=== PATIENT | male | born 1970 | race Caucasian/White ===

== ENCOUNTER 2021-11-02 14:57 | Inpatient (IN) | payer OTHER ==
[~2021-11-02] VITALS: Ht 182.9 cm; Wt 171.1 kg
--- NOTE | 2021-11-02 15:20 | NUR ---
SOB & DIARRHEA X 2 DAYS. COVID VACCINE UTD. PT AAOX4, VSS. PLACED ON REGRINDER, SR. ON O2 2L, SAT 96%. AWAITING EVAL BY ERMD/MESS COOK. WILL CONT TO MONITOR.
--- NOTE | 2021-11-02 15:35 | NUR ---
TECH CALLED MIDLINE RN PER ERMD ORDER.
[2021-11-02] MEDS ORDERED: LEVO112T2 PO (15:46)
[2021-11-02] MEDS ORDERED: ALLO100T PO (15:46)
[2021-11-02] MEDS ORDERED: LISI10TA29 PO (15:46)
[2021-11-02] MEDS ORDERED: APIX2.5T PO (15:46)
[2021-11-02] MEDS ORDERED: ATOR10TA PO (15:46)
[2021-11-02] MEDS ORDERED: CHOL500062 PO (15:46)
--- NOTE | 2021-11-02 16:45 | NUR ---
COVID TEST COLLECTED AND SENT
[2021-11-02 16:59] LABS: BASOPHILS # (AUTO) 0.1 K/uL (0.0-0.2); BASOPHILS % (AUTO) 1.2 % (0.0-2.0); EOSINOPHILS % (AUTO) 2.5 % (0.0-6.0); HEMATOCRIT 34 % (39-51); LYMPHOCYTES # (AUTO) 1.8 K/uL (0.8-4.8); LYMPHOCYTES % (AUTO) 19.9 % (20.0-44.0); MEAN CORPUSCULAR HGB CONC 32 g/dl (31.0-36.0); MEAN CORPUSCULAR VOLUME 93 fL (80-96); MONOCYTES # (AUTO) 0.9 K/uL (0.1-1.30); MONOCYTES % (AUTO) 10.1 % (2.0-12.0); NEUTROPHILS # (AUTO) 5.9 K/uL (1.8-8.9); NEUTROPHILS % (AUTO) 66.3 % (43.0-81.0); PLATELET COUNT (AUTO) 340 K/uL (150-450); WHITE BLOOD COUNT (AUTO) 8.9 K/uL (4.3-11.0)
[2021-11-02 17:49] LABS: CREATININE 0.9 mg/dL (0.6-1.3); POTASSIUM 3.9 mmol/L (3.5-5.1)
[2021-11-02] MEDS ORDERED: FUROSEMIDE 40 MG/4 ML VIAL IV ONE (18:00)
[2021-11-02 18:01] LABS: BILIRUBIN,DIRECT 0.1 mg/dL (0.0-0.2); BILIRUBIN,TOTAL 0.4 mg/dL (0.2-1.0); TOTAL PROTEIN, SERUM 7.5 g/dL (6.4-8.2)
[2021-11-02] MEDS ORDERED: FUROSEMIDE 40 MG/4 ML VIAL ONE (18:40)
--- NOTE | 2021-11-02 18:40 | NUR ---
dr garber from anesthesia at bedside with dr pozo for rsi, patient refused.
[2021-11-02] MEDS ORDERED: MORPHINE SULFATE INJ 2 MG/ML DISP.SYRIN IV PRN (19:30)
[2021-11-02] MEDS ORDERED: LABETALOL 20 MG/4 ML VIAL IV PRN (19:30)
[2021-11-02] MEDS ORDERED: ONDANSETRON HCL/PF 4 MG/2 ML VIAL IVP PRN (19:30)
[2021-11-02] MEDS ORDERED: MAGNESIUM HYDROXIDE 30 ML UDC PO PRN (19:30)
[2021-11-02] MEDS ORDERED: ACETAMINOPHEN 325 MG TABLET PO PRN (19:30)
[2021-11-02] MEDS ORDERED: MAG HYDROX/AL HYDROX/SIMETH 30 ML UDC PO PRN (19:30)
[2021-11-02] MEDS ORDERED: DEXAMETHASONE SOD PHOSPHATE 10 MG/ML VIAL IV ONE (19:30)
[2021-11-02] MEDS ORDERED: DEXAMETHASONE SOD PHOSPHATE 10 MG/ML VIAL ONE (19:33)
[2021-11-02] MEDS ORDERED: PIPERACILLIN /TAZOBACTAM 3.375 G VIAL IV ONE (19:35)
[2021-11-02] MEDS ORDERED: PIPERACILLIN /TAZOBACTAM 3.375 G in IV D5W 50 ML IV ONE (20:00)
[2021-11-02] MEDS ORDERED: VANCOMYCIN 1.5 GM in IV D5W 250 ML IV ONE (20:00)
[2021-11-02] MEDS ORDERED: VANCOMYCIN 1.5 GM in IV D5W 500 ML IV ONE (20:00)
[2021-11-02] MEDS ORDERED: VANCOMYCIN 1 GM in IV D5W 250 ML IV ONE (20:00)
--- NOTE | 2021-11-02 21:13 | NUR ---
[facility] SWAB COLLECTED AND SENT TO LAB. PATIENT'S BELONGINGS LIST DONE.
--- NOTE | 2021-11-02 21:23 | NUR ---
TRANSFERRE TO ICU UNDER ACLS
--- NOTE | 2021-11-02 21:27 | NUR ---
RECEIVED PT FROM ER VIA GURNEY ACCOMPANIED BY RN AND EMT, PT ON NRM 15L NO SIGN OF RESPIRATORY DISTRESS, HOOKED TO MONITOR WITH SPO2 96-97% PT IS LETHARGIC BUT EASY TO AWAKE HE IS ABLE TO ANSWER QUESTIONS HE EVEN HELP US IN TRANSFERRING TO BED DUE TO HIS HEAVY WEIGHT, HOOKED TO MONITOR WITH READING SINUS RHYTHM INVERTED TWAVE HR 60-70, HEAD TO TOE ASSESMENT DONE PT HAVE BIG AND DISTENDED ABDOMEN BUT SOFT TO TOUCH , BILATERAL LOWER EXTREMITIES REDNESS NOTED DOCUMENTATION DONE, INITILA ASSESSMENT DONE, PT HAVE GRAJEDA CATHETER DRAINING CLEAR YELLOW URINE, BED ON LOWEST POSITION AND LOCKED SIDERAIL UP X2 WILL CONT TO MONITOR
[2021-11-02 22:00] VITALS: BP 138/55
--- NOTE | 2021-11-02 22:00 | NUR ---
SEEN BY DR SYLVIA HERNANDEZ PT IS ABLE TO ANSWER DR QUESTION BUT STILL VERY SLEEPY,
[2021-11-02] MEDS: ATORVASTATIN 40 MG TABLET PO SCH (22:19)
[2021-11-02] MEDS: APIXABAN 5 MG TABLET PO SCH (22:19)
[2021-11-02 22:30] VITALS: BP 127/68
[2021-11-02 22:44] LABS: THYROID STIMULATING HORMONE 8.534 uIU/mL (0.358-3.74)
[2021-11-02] MEDS: FUROSEMIDE 40 MG/4 ML VIAL IV SCH (22:48)
[2021-11-02 23:00] VITALS: BP 130/77
[2021-11-02 23:30] VITALS: BP 109/60
[2021-11-03] VITALS (27 sets, daily range): BP systolic 84–147; BP diastolic 31–102
--- NOTE | 2021-11-03 00:37 | NUR ---
RELAYED TO DR MARIE ABOUT THE LATEST ABG RESULT THAT WE ORDER DUE TO PT IS STILL VERY LETHARGIC WITH ORDER CONTINUE BIPAP WITH CURRENT SETTING UNTIL MORNING NOTED AND CARRIED OUT
[2021-11-03 00:40] LABS: ABG BASE EXCESS 1.7 mmol/L; ABG PCO2 75.4 mmHg (35.0-45.0); ABG PO2 66.8 mmHg (75.0-100.0); COHb 0.3 % (0.5-1.5); MetHb 0.3 % (0.0-1.5); O2Hb 88.3 % (94.0-97.0); SITE, ABG Right Radial; VENT MODE, BG 3L NC
[2021-11-03 00:40] LABS: ABG BASE EXCESS 4.2 mmol/L; ABG PCO2 49.2 mmHg (35.0-45.0); ABG PH 7.399 (7.350-7.450); ABG PO2 88.8 mmHg (75.0-100.0); COHb 0.3 % (0.5-1.5); MetHb 0.3 % (0.0-1.5); O2Hb 95.6 % (94.0-97.0); PEEP,BG 5 cm H2O; SITE, ABG Right Radial; VENT MODE, BG ST 20/5 18 40%
[2021-11-03 00:40] LABS: ABG BASE EXCESS 2.9 mmol/L; ABG OXYGEN SATURATION 94.9 % (92.0-98.5); ABG PCO2 54.6 mmHg (35.0-45.0); ABG PO2 83.2 mmHg (75.0-100.0); AaDO2 139.2 mmHg; COHb 0.1 % (0.5-1.5); MetHb 0.2 % (0.0-1.5); O2Hb 94.6 % (94.0-97.0); SITE, ABG Right Radial
[2021-11-03] MEDS ORDERED: CLINDAMYCIN 900 MG/6 ML VIAL ONE (02:53)
[2021-11-03] MEDS ORDERED: IV NS 0.9% 250 ML IV PRN (03:00)
[2021-11-03] MEDS: CLINDAMYCIN 900 MG in IV D5W 50 ML IV SCH ×3 (04:51→20:41)
[2021-11-03 04:56] LABS: BASOPHILS % (AUTO) 0.4 % (0.0-2.0); HEMATOCRIT 31 % (39-51); HEMOGLOBIN 10.1 g/dL (13.5-17.5); LYMPHOCYTES # (AUTO) 0.6 K/uL (0.8-4.8); LYMPHOCYTES % (AUTO) 10.5 % (20.0-44.0); MEAN CORPUSCULAR HGB CONC 33 g/dl (31.0-36.0); MEAN CORPUSCULAR VOLUME 92 fL (80-96); MONOCYTES # (AUTO) 0.3 K/uL (0.1-1.30); NEUTROPHILS # (AUTO) 4.9 K/uL (1.8-8.9); NEUTROPHILS % (AUTO) 84.1 % (43.0-81.0); PLATELET COUNT (AUTO) 315 K/uL (150-450); RED BLOOD CELL COUNT(AUTO) 3.37 MIL/uL (4.5-6.0); WHITE BLOOD COUNT (AUTO) 5.8 K/uL (4.3-11.0)
[2021-11-03 05:21] LABS: ALBUMIN 2.4 g/dL (3.4-5.0); BILIRUBIN,TOTAL 0.4 mg/dL (0.2-1.0); CALCIUM, SERUM 9.3 mg/dL (8.5-10.1); CREATININE 0.8 mg/dL (0.6-1.3); MAGNESIUM 1.9 mg/dL (1.8-2.4); PHOSPHORUS 4.1 mg/dL (2.5-4.9); POTASSIUM 4.5 mmol/L (3.5-5.1); TOTAL PROTEIN, SERUM 6.5 g/dL (6.4-8.2)
--- NOTE | 2021-11-03 06:41 | NUR ---
PT ON BED STILL ON BIPAP SETTING ORDERED PT STILL LETHARGIC BUT MORE AROUSABLE THAN LAST NIGHT, NO SIGN OF DISTRESS SPO2 96-97% SINUS RHYTHM/ SINUS [place] ON MONITOR 50-70'S , ALL NEEDS ATTENDED, BED ON LOWEST POSITION AND LOCKED SIDE RAILS UP X2 CALL LIGHT WITHIN REACH WILL CONT TO MONITOR
[2021-11-03] MEDS: LEVOTHYROXINE SODIUM 112 MCG TABLET PO SCH (07:30)
[2021-11-03] MEDS: APIXABAN 5 MG TABLET PO SCH ×3 (08:01→16:19)
[2021-11-03] MEDS: ALLOPURINOL 100 MG TABLET PO SCH ×3 (08:02→16:19)
[2021-11-03] MEDS: LISINOPRIL (10MG) 10 MG TABLET PO SCH ×2 (08:02→09:28)
[2021-11-03] MEDS: FUROSEMIDE 40 MG/4 ML VIAL IV SCH ×3 (08:22→16:19)
--- NOTE | 2021-11-03 10:00 | NUR ---
PATIENT REMOVED FROM BIPAP AND PLACED ON 3L NC Addendum: 11/03/21 at 1202 by MARCIAL VARGHESE RT Amended: Links added.
--- NOTE | 2021-11-03 18:28 | NUR ---
RN CLOSING NOTE PT A/OX4 ON 4L NC O2 SAT >94%. PT ON LASIX GRAJEDA OUTPUT 6.8L. RU MIDLINE AND RAC INTACT AND FLUSHING.
[2021-11-03] MEDS: ATORVASTATIN 40 MG TABLET PO SCH (21:07)
--- NOTE | 2021-11-03 21:30 | NUR ---
REPORTED TO HOSPITALIST SOFTWARE DEVELOPER MANAGER DR MARIE THAT PT IS COMPLAINING OF LOWER BACK PAIN AND ASKING FOR PAIN MEDICATION WITH ORDER FOR NORCO 5/325 PO Q6H PRN NOTED AND CARRIED OUT
[2021-11-03] MEDS: HYDROCODONE/APAP 5/325MG TABLET PO PRN (21:42)
[2021-11-03 22:57] LABS: ABG BASE EXCESS 5.2 mmol/L; ABG OXYGEN SATURATION 94.8 % (92.0-98.5); ABG PCO2 50.3 mmHg (35.0-45.0); ABG PH 7.406 (7.350-7.450); ABG PO2 77.6 mmHg (75.0-100.0); AaDO2 91.7 mmHg; COHb 0.2 % (0.5-1.5); MetHb 0.2 % (0.0-1.5); O2Hb 94.4 % (94.0-97.0); SITE, ABG Right Radial
--- NOTE | 2021-11-03 23:15 | NUR ---
PT IS AWAKE AND ALERT, PLACED ON NOC BIPAP. RN NOTIFIED.
[2021-11-04] VITALS (22 sets, daily range): BP systolic 105–176; BP diastolic 45–92
--- NOTE | 2021-11-04 02:37 | NUR ---
PT REQUESTED TO BE OFF BIPAP BECAUSE HE WANTS TO EAT, NOTIFIED RT AND PUT HIM ON O2 3L VIA NC SPO2 93-95% WILL CONT TO MONITOR
--- NOTE | 2021-11-04 02:40 | NUR ---
PT TAKEN OFF BIPAP TO EAT. PLACED ON 3L NC RN AWARE.
[2021-11-04] MEDS: CLINDAMYCIN 900 MG in IV D5W 50 ML IV SCH ×3 (04:38→21:02)
[2021-11-04 04:50] LABS: BASOPHILS # (AUTO) 0.1 K/uL (0.0-0.2); HEMATOCRIT 33 % (39-51); HEMOGLOBIN 10.6 g/dL (13.5-17.5); LYMPHOCYTES # (AUTO) 1.8 K/uL (0.8-4.8); LYMPHOCYTES % (AUTO) 23.2 % (20.0-44.0); MEAN CORPUSCULAR HGB CONC 33 g/dl (31.0-36.0); MEAN CORPUSCULAR VOLUME 93 fL (80-96); MONOCYTES # (AUTO) 0.7 K/uL (0.1-1.30); MONOCYTES % (AUTO) 8.5 % (2.0-12.0); NEUTROPHILS % (AUTO) 65.3 % (43.0-81.0); PLATELET COUNT (AUTO) 347 K/uL (150-450); RED BLOOD CELL COUNT(AUTO) 3.49 MIL/uL (4.5-6.0); WHITE BLOOD COUNT (AUTO) 7.6 K/uL (4.3-11.0)
[2021-11-04 06:28] LABS: CALCIUM, SERUM 9.1 mg/dL (8.5-10.1); CREATININE 0.8 mg/dL (0.6-1.3); MAGNESIUM 2.1 mg/dL (1.8-2.4); PHOSPHORUS 2.8 mg/dL (2.5-4.9)
[2021-11-04] MEDS: FUROSEMIDE 40 MG/4 ML VIAL IV SCH (08:27)
[2021-11-04] MEDS: LEVOTHYROXINE SODIUM 112 MCG TABLET PO SCH (08:28)
[2021-11-04] MEDS: APIXABAN 5 MG TABLET PO SCH ×2 (08:28→17:30)
[2021-11-04] MEDS: ALLOPURINOL 100 MG TABLET PO SCH ×2 (08:29→17:29)
[2021-11-04] MEDS: LISINOPRIL (10MG) 10 MG TABLET PO SCH (08:29)
--- NOTE | 2021-11-04 18:15 | NUR ---
TEST DEVELOPMENT ENGINEER NOTES PATIENT RECEIVED FROM ER TRANSPORTED VIA BED ACCOMPANIED BY 2 NURSES. PATIENT ALERT AND ORIENTED X 3-4. ABLE TO VERBALIZE NEEDS. WITH OXYGEN AT 4LPM VIA NASAL CANULA. PATIENT PLACED ON LINE THERAPIST ORDERED. WITH MIDLINE ON RIGHT UPPER ARM. ESTABLISHED A AN IV ACCESS ON THE LEFT WRIST G22, PATENT AND INTACT. PATIENT REFUSED TO RAISE HEAD OF THE BED AND WANTS TO LAY FLAT BECAUSE OF BACK PAIN HE SAID. NO COMPLAINT OF PAIN AT THIS TIME. SAFETY MEASURES IN PLACED. CALL LIGHT WITHIN REACH. BED ON LOWEST LOCKED POSITION, SIDE RAILS UP X2. WILL CONTINUE TO MONITOR PATIENT.
--- NOTE | 2021-11-04 19:10 | NUR ---
MAJOR LEAGUE BASEBALL UMPIRE NOTES PATIENT ALERT AND ORIENTED X 3-4. ABLE TO VERBALIZE NEEDS. WITH OXYGEN AT 4LPM VIA NASAL CANULA. PATIENT PLACED ON PACKAGING INSPECTOR ORDERED. WITH MIDLINE ON RIGHT UPPER ARM. ESTABLISHED A AN IV ACCESS ON THE LEFT WRIST G22, PATENT AND INTACT. PATIENT REFUSED TO RAISE HEAD OF THE BED AND WANTS TO LAY FLAT BECAUSE OF BACK PAIN HE SAID. NO COMPLAINT OF PAIN AT THIS TIME. SAFETY MEASURES IN PLACED. CALL LIGHT WITHIN REACH. BED ON LOWEST LOCKED POSITION, SIDE RAILS UP X2. WILL ENDORSE PATIENT FOR CONTINUITY OF CARE.
--- NOTE | 2021-11-04 19:32 | NUR ---
RN OPENING NOTES RECEIVED PATIENT IN BED ASLEEP, AWAKNS TO VERBAL STIMULI. A/O X4. ON 4LPM VIA NC AND TOLERATING WELL. NO SOB NOTED. NO S/SX OF RESPIRATORY DISTRESS NOTED. TELE MONITOR DETECTS SINUS RHYTHM. IV ACCESS IN L WRIST #22G. IV IS INTACT, PATENT, AND FLUSHING WELL. SAFETY PRECAUTIONS IN PLACE: BED IN LOWEST, LOCKED POSITION, SIDERAILS UPx2, AND BRAKES ON. TABLE AND CALL LIGHT WITHIN REACH. WILL CONTINUE TO MONITOR.
[2021-11-04] MEDS: ATORVASTATIN 40 MG TABLET PO SCH (21:01)
[2021-11-05 04:00] VITALS: BP 140/76
[2021-11-05] MEDS: CLINDAMYCIN 900 MG in IV D5W 50 ML IV SCH ×3 (04:54→21:36)
[2021-11-05] MEDS: LEVOTHYROXINE SODIUM 112 MCG TABLET PO SCH (06:33)
--- NOTE | 2021-11-05 06:46 | NUR ---
RN CLOSING NOTES PT IN BED ASLEEP, AWAKENS TO VERBAL STIMULI. A/Ox4, ABLE TO MAKE NEEDS KNOWN. ON 4LPM VIA NC AND TOLERATING WELL. NO SOB NOTED. NO S/SX OF RESPIRATORY DISTRESS NOTED. TELE MONITOR DETECTS SINUS RHYTHM WITH RATE OF 70s. IV ACCESS IN L WRIST #22G. IV IS INTACT, PATENT, AND FLUSHING WELL. ALL NEEDS MET. PT KEPT CLEAN AND DRY. SAFETY PRECAUTIONS IN PLACE: BED IN LOWEST, LOCKED POSITION, SIDERAILS UPx2, AND BRAKES ON. TABLE AND CALL LIGHT WITHIN REACH. WILL ENDORSE TO ONCOMING SHIFT FOR CHARLIE. Addendum: 11/05/21 at 0649 by LOBO GUADALUPE RN GRAJEDA CATHETER DRAINING CLEAR, BLOOD-TINGED URINE ABOUT 3100 ML.
[2021-11-05 07:22] LABS: BASOPHILS # (AUTO) 0.1 K/uL (0.0-0.2); BASOPHILS % (AUTO) 0.6 % (0.0-2.0); EOSINOPHILS % (AUTO) 1.7 % (0.0-6.0); HEMATOCRIT 35 % (39-51); HEMOGLOBIN 11.4 g/dL (13.5-17.5); LYMPHOCYTES # (AUTO) 1.4 K/uL (0.8-4.8); LYMPHOCYTES % (AUTO) 15.2 % (20.0-44.0); MEAN CORPUSCULAR HGB CONC 32 g/dl (31.0-36.0); MEAN CORPUSCULAR VOLUME 92 fL (80-96); MONOCYTES # (AUTO) 0.8 K/uL (0.1-1.30); MONOCYTES % (AUTO) 9.1 % (2.0-12.0); NEUTROPHILS # (AUTO) 6.8 K/uL (1.8-8.9); NEUTROPHILS % (AUTO) 73.4 % (43.0-81.0); PLATELET COUNT (AUTO) 374 K/uL (150-450); RED BLOOD CELL COUNT(AUTO) 3.82 MIL/uL (4.5-6.0); WHITE BLOOD COUNT (AUTO) 9.2 K/uL (4.3-11.0)
[2021-11-05 07:39] LABS: CREATININE 0.9 mg/dL (0.6-1.3); MAGNESIUM 2.2 mg/dL (1.8-2.4); PHOSPHORUS 3.2 mg/dL (2.5-4.9); POTASSIUM 4.8 mmol/L (3.5-5.1)
--- NOTE | 2021-11-05 07:50 | NUR ---
BRUSH MATERIAL PREPARER OPENING NOTES RECEIVED PATIENT IN BED, AWAKE, A/O X4. PATIENT ON OXYGEN THERAPY; BREATHING EVEN AND UNLABORED AT THE MOMENT. NO COMPLAINS OF PAIN AT THIS TIME.L WRIST IV ACCESS G #22 PRESENT AND INTACT. GRAJEDA CATH PRESENT DRAINING CLEAR YELLOW URINE. SAFETY PRECAUTIONS IN PLACE; BED IN LOW POSITION AND LOCKED, RAILS UP X2, CALL LIGHT WITHIN REACH. WILL CONTINUE TO MONITOR PATIENT.
[2021-11-05 07:55] LABS: CALCIUM, SERUM 10.9 mg/dL (8.5-10.1)
[2021-11-05] MEDS: ALLOPURINOL 100 MG TABLET PO SCH ×2 (08:29→16:06)
[2021-11-05] MEDS: APIXABAN 5 MG TABLET PO SCH ×2 (08:30→16:08)
[2021-11-05 09:17] VITALS: BP 126/70
[2021-11-05] MEDS: LISINOPRIL (10MG) 10 MG TABLET PO SCH (09:20)
[2021-11-05 12:09] VITALS: BP 123/58
[2021-11-05 16:21] VITALS: BP 143/79
--- NOTE | 2021-11-05 18:45 | NUR ---
HEAVY EQUIPMENT RENTAL ASSOCIATE CLOSING NOTES PATIENT REMAINS IN BED, ASLEEP, A/O X4. PATIENT ON OXYGEN THERAPY; BREATHING EVEN AND UNLABORED AT THE MOMENT. NO COMPLAINS OF PAIN DURING THE DAY. L WRIST IV ACCESS G #22 PRESENT AND INTACT. GRAJEDA CATH PRESENT DRAINING CLEAR YELLOW URINE WITH A DAILY OUTPUT OF 1700 MLS. SAFETY PRECAUTIONS IN PLACE; BED IN LOW POSITION AND LOCKED, RAILS UP X2, CALL LIGHT WITHIN REACH. WILL ENDORSE TO BRUSH STAINER NURSE FOR CHARLIE.
[2021-11-05 20:00] VITALS: BP 101/56
[2021-11-05] MEDS: ATORVASTATIN 40 MG TABLET PO SCH (22:23)
--- NOTE | 2021-11-06 | NUR ---
MS RN NOTE: BiPAP OBSERVED ON AND OPERATIONAL AT THIS TIME.
[2021-11-06] MEDS: CLINDAMYCIN 900 MG in IV D5W 50 ML IV SCH ×3 (05:33→20:42)
--- NOTE | 2021-11-06 07:40 | NUR ---
ENVIRONMENTAL MARKETING REPRESENTATIVE CLOSING NOTES REPORTED OFF TO ONCOMING RN. PATIENT'S EYES CLOSED, RR EVEN AND UNLABORED. EASILY AROUSED BY VOICE COMMAND. ALERT AND ORIENTED X4. NAD AND STABLE AT THIS TIME. PATIENT ON SUPPLEMENTAL O2 VIA NC AT 3LPM. DENIES PAIN. DENIES PAIN DURING SHIFT. L WRIST IV ACCESS G #22 SL. FLUSHED AND PATENT WITHOUT S/SX OF INFILTRATION/INFECTION. DRESSING CDI. F/C IN PLACE, PATENT AND DRAINING CLEAR YELLOW URINE. SIGNIFICANT OUTPUT NOTED (SEE SPREADSHEET). ASPIRATION AND SAFETY PRECAUTIONS IN PLACE: HOB ELEVATED TO SEMI-FOWLERS POSITION, BED LOW AND LOCKED, SIDE RAILS UP X2, CALL LIGHT AND FREQUENTLY USED ITEMS WITHIN REACH..
[2021-11-06] MEDS: LEVOTHYROXINE SODIUM 112 MCG TABLET PO SCH (07:41)
--- NOTE | 2021-11-06 07:59 | NUR ---
RN OPENING NOTES PATIENT AWAKE IN BED RESTING, A/O X 4. NO S/S OF PAIN NOTED AT THIS TIME. PATIENT ON 4L OXYGEN VIA NC, NO DISTRESS OR SHORTNESS OF BREATH NOTED. IV ACCESS L WRIST #22G, PATENT AND FLUSHING WELL. PATIENT HAVE A GRAJEDA CATHETER, IN PLACE, DRAINING WELL. FALL AND SAFETY MEASURES IN PLACE, BED ALARM ON, BED IN LOW AND LOCK POSITION, CALL LIGHT AND TABLE WITHIN EASY REACH, SIDE RAILS UP X2. WILL CONTINUE TO MONITOR.
[2021-11-06] MEDS: ALLOPURINOL 100 MG TABLET PO SCH ×2 (08:17→16:24)
[2021-11-06] MEDS: APIXABAN 5 MG TABLET PO SCH ×2 (08:18→16:25)
[2021-11-06] MEDS: LISINOPRIL (10MG) 10 MG TABLET PO SCH (08:18)
[2021-11-06 08:28] VITALS: BP 106/68
--- NOTE | 2021-11-06 14:47 | NUR ---
RN NOTE DR. BEARD ORDER PT TO WALK PATIENT WITH OXYGEN AND WITHOUT OXYGEN. PT EVALUATION ORDER DONE.
[2021-11-06] MEDS: HYDROCODONE/APAP 5/325MG TABLET PO PRN (15:44)
[2021-11-06 16:27] VITALS: BP 123/71
--- NOTE | 2021-11-06 18:49 | NUR ---
RN CLOSING NOTES PATIENT AWAKE IN BED RESTING, A/O X 4. NO S/S OF PAIN NOTED AT THIS TIME. PATIENT ON 4L OXYGEN VIA NC, NO DISTRESS OR SHORTNESS OF BREATH NOTED. IV ACCESS L WRIST #22G, PATENT AND FLUSHING WELL. PATIENT HAVE A GRAJEDA CATHETER, IN PLACE, DRAINING WELL, OUTPUT: 1100ML. FALL AND SAFETY MEASURES IN PLACE, BED ALARM ON, BED IN LOW AND LOCK POSITION, CALL LIGHT AND TABLE WITHIN EASY REACH, SIDE RAILS UP X2. WILL ENDORSE TO PACKAGE CHECKER.
--- NOTE | 2021-11-06 19:23 | NUR ---
MS RN OPENING NOTES RECEIVED PATIENT IN BED AWAKE, ALERT AND ORIENTED X4, NO S/SX OF ACUTE RESPIRATORY DISTRESS NOTED. PATIENT IS ON 4L OXYGEN VIA NC, TOLERATING WELL. DENIES PAIN OR DISCOMFORT AT THIS TIME. IV ACCESS ON DANETTE MIDLINE PATENT AND FLUSHING WELL. PATIENT WITH GRAJEDA CATHETER TO URINE BAG WITH JOSE YELLOW URINE. SAFETY MEASURES IN PLACED, BED ALARM ON, BED IN LOW AND IN LOCKED POSITION, CALL LIGHT AND TABLE WITHIN EASY REACH, SIDE RAILS UP X2. WILL CONTINUE TO MONITOR PATIENT THROUGHOUT SHIFT. Addendum: 11/06/21 at 2336 by ALY KELLEY RN PATIENT REFUSED VITAL SIGNS. DESPITE OF EXPLANATION REGARDING THE IMPORTANCE OF V/S FOR INITIAL ASSESSMENT. PATIENT CONTINUED TO REFUSE.
[2021-11-06] MEDS: ATORVASTATIN 40 MG TABLET PO SCH (21:37)
--- NOTE | 2021-11-06 23:57 | NUR ---
RT PT REFUSED BIPAP, NURSE INFORMED. SPO2 CURRENTLY 94%
--- NOTE | 2021-11-07 04:10 | NUR ---
MS RN NOTES IV ACCESS ON LEFT WRIST WAS PULLED OUT. COVERED WITH DRY DRESSING. PER PATIENT, MY IV LINE WAS PULLED OUT WHEN I MOVED. PATIENT HAS AN IV ACCESS ON RIGHT UPPER ARM MIDLINE, PATENT, INTACT AND FLUSHING WELL.
[2021-11-07] MEDS: CLINDAMYCIN 900 MG in IV D5W 50 ML IV SCH ×2 (04:12→12:46)
--- NOTE | 2021-11-07 06:51 | NUR ---
MS RN CLOSING NOTES RECEIVED PATIENT IN BED ASLEEP, AROUSES EASILY. NO S/SX OF ACUTE RESPIRATORY DISTRESS NOTED. PATIENT IS ON 4L OXYGEN VIA NC, TOLERATING WELL. DENIES PAIN OR DISCOMFORT AT THIS TIME. IV ACCESS ON DANETTE MIDLINE PATENT AND FLUSHING WELL. PATIENT WITH GRAJEDA CATHETER TO URINE BAG WITH JOSE YELLOW URINE. SAFETY MEASURES IN PLACED, BED ALARM ON, BED IN LOW AND IN LOCKED POSITION, CALL LIGHT AND TABLE WITHIN EASY REACH, SIDE RAILS UP X2. WILL ENDORSE TO ONCOMING SHIFT.
--- NOTE | 2021-11-07 07:28 | NUR ---
RN OPENING NOTES PATIENT AWAKE IN BED RESTING, A/O X 4. NO S/S OF PAIN NOTED AT THIS TIME. PATIENT ON 4L OXYGEN VIA NC, NO DISTRESS OR SHORTNESS OF BREATH NOTED. IV ACCESS DANETTE MIDLINE, PATENT AND FLUSHING WELL. PATIENT HAVE A GRAJEDA CATHETER, IN PLACE, DRAINING WELL. FALL AND SAFETY MEASURES IN PLACE, BED ALARM ON, BED IN LOW AND LOCK POSITION, CALL LIGHT AND TABLE WITHIN EASY REACH, SIDE RAILS UP X2. WILL CONTINUE TO MONITOR.
[2021-11-07 09:31] VITALS: BP 123/67
[2021-11-07] MEDS: ALLOPURINOL 100 MG TABLET PO SCH (09:31)
[2021-11-07] MEDS: LISINOPRIL (10MG) 10 MG TABLET PO SCH (09:31)
[2021-11-07] MEDS: LEVOTHYROXINE SODIUM 112 MCG TABLET PO SCH (09:31)
[2021-11-07] MEDS: APIXABAN 5 MG TABLET PO SCH (09:32)
--- NOTE | 2021-11-07 15:25 | NUR ---
HATCHERY MANAGER NOTE PATIENT DISCHARGED IN MEDICAL STABLE CONDITION. A/O X4. V/S TAKEN STABLE AND RECORDED. NO IV ACCESS. SKIN ASSESSMENT DONE AND PICTURES TAKEN. NAME ARM BAND REMOVED. ALL BELONGINGS CHECKED AND SIGNED. HEALTH TEACHING AND DISCHARGE INSTRUCTIONS GIVEN AND VERBALIZED UNDERSTANDING. PATIENT LEFT UNIT VIA WHEELCHAIR WITH NO SIGNS OF DISTRESS, ACCOMPANIED BY RN AND AIRCRAFT MAINTENANCE ENGINEER TO THE LOBBY. PATIENT WAS PROVIDED WITH A WALKER AND BUS PASS BEFORE DISCHARGE. CHARGE NURSE AWARE OF DISCHARGED.
== END 2021-11-07 15:58 | disposition home or self-care (01) | DRG 189 ==
LOC: ER 15:21 → ICU 20:37 → TELE 11-04 18:10 → MED 11-05 16:22
PROVIDERS: ADMIT Internal Medicine; ATTEND Nurse Practitioner Acute Care
PROC: 5A09357 Assistance with Respiratory Ventilation, Less than 24 Consecutive Hours, Continuous Positive Airway Pressure (ICD-10-PCS; principal; 2021-11-02)
PROC: 05HD33Z Insertion of Infusion Device into Right Cephalic Vein, Percutaneous Approach (ICD-10-PCS; 2021-11-02)
DX: J96.22 Acute and chronic respiratory failure with hypercapnia (principal); G93.41 Metabolic encephalopathy; I50.33 Acute on chronic diastolic (congestive) heart failure; L03.115 Cellulitis of right lower limb; L03.116 Cellulitis of left lower limb; E44.0 Moderate protein-calorie malnutrition; E66.2 Morbid (severe) obesity with alveolar hypoventilation; Z68.43 Body mass index [BMI] 50.0-59.9, adult; D68.59 Other primary thrombophilia; I11.0 Hypertensive heart disease with heart failure; I48.91 Unspecified atrial fibrillation; J96.21 Acute and chronic respiratory failure with hypoxia; E03.9 Hypothyroidism, unspecified; Z86.711 Personal history of pulmonary embolism; M79.3 Panniculitis, unspecified; Z20.822 Contact with and (suspected) exposure to COVID-19; F20.9 Schizophrenia, unspecified; F32.A Depression, unspecified; F50.9 Eating disorder, unspecified; Z98.890 Other specified postprocedural states; Z90.49 Acquired absence of other specified parts of digestive tract; Z79.01 Long term (current) use of anticoagulants; Z79.899 Other long term (current) drug therapy; E78.5 Hyperlipidemia, unspecified; G47.419 Narcolepsy without cataplexy; M10.9 Gout, unspecified; Z91.81 History of falling; D64.9 Anemia, unspecified; I87.8 Other specified disorders of veins
CPT/HCPCS: 36415; 36600; 71045-TC; 80048-TC; 80053-TC; 80076-TC; 82803-TC; 83605-TC; 83735-TC; 83880; 84100-TC; 84439-TC; 84443-TC; 84484-TC; 85025-TC; 85378-TC; 87040-TC; 87081-TC; 93307-TC; 93970-TC; 94660; 94760-TC; 94799-TC; 97116-TC; 97530-TC; 99082-TC; C9803; G0378; J1100; J1940; J2543; J3370; J3490; J7030; J7050; J7060